=== PATIENT | male | born 1985 | race Two or more races ===

== ENCOUNTER 2023-05-08 19:26 | Emergency (ER) | payer MEDICAID, OTHER ==
[~2023-05-08] VITALS: Ht 175.3 cm; Wt 85.0 kg
[~2023-05-08 19:26] MED LIST: AMOX875T3 PO; PRED20TA2 PO; PROM1SOL4 PO
[2023-05-08] MEDS ORDERED: ALBUTEROL SULF 2.5 MG/0.5ML(0.5%) NEB SOLN NEB ONE (20:00)
[2023-05-08] MEDS ORDERED: IPRATROPIUM BROM 0.5 MG/2.5ML INH SOL NEB ONE (20:00)
[2023-05-08 21:15] VITALS: BP 128/85; PULSE 91; RESP 16; TEMP 98.7; O2SAT 94
[2023-05-08] MEDS ORDERED: ALBUAER3 IN (21:17)
[2023-05-08] MEDS ORDERED: DOXY-448 PO (21:17)
[2023-05-08] MEDS ORDERED: PRED20TA2 PO (21:17)
[2023-05-08] MEDS: SODIUM CHLORIDE 0.9% 1,000 ML IV ONE (21:19)
[2023-05-08 21:22] LABS: COVID19 ANTIGEN SOFIA FIA NEGATIVE (NEGATIVE)
[2023-05-08 21:23] LABS: Rapid Influenza A Negative (Negative); Rapid Influenza B Negative (Negative)
[2023-05-08] MEDS: methylPREDNISolone SOD SUCC 125 MG/2 ML VL IV ONE (21:25)
[2023-05-08] MEDS: cefTRIAXone 1GM/50ML D5W 50 ML IV ONE (21:25)
[2023-05-08 21:28] LABS: Basophils # (auto) 0.1 10 ^3/uL (0-0.2); Basophils % (auto) 0.8 % (0.0-2.0); Eosinophils # (auto) 0.6 10 ^3/uL (0-0.8); Eosinophils % (auto) 4.6 % (0.0-7.0); Hematocrit 49.9 % (41.0-53.0); Hemoglobin 16.7 g/dL (13.5-17.5); Lymphocytes # (auto) 4.2 10 ^3/uL (0.4-5.4); Lymphocytes % (auto) 30.5 % (10.0-50.0); Mean Corpuscular Hemoglobin 29.9 pg (28.0-32.0); Mean Corpuscular Hgb Conc. 33.5 g/dL (32.0-36.0); Mean Corpuscular Volume 89.3 fL (80.0-100.0); Monocytes # (auto) 1.6 10 ^3/uL (0-1.3); Monocytes % (auto) 11.2 % (0.0-12.0); Neutrophils # (auto) 7.4 10 ^3/uL (1.6-8.6); Neutrophils % (auto) 52.9 % (37.0-80.0); Nucleated Red Blood Cells % 0.1 %; Red Blood Cells 5.58 10^6/uL (4.5-5.90); White Blood Cell 13.9 10^3/uL (4.4-10.8)
[2023-05-08] MEDS: DOXYCYCLINE 100MG/250ML 250 ML IV ONE (21:37)
[2023-05-08 21:39] LABS: Chloride 107 mmol/L (98-107); Potassium 3.6 mmol/L (3.5-5.1); Sodium 138 mmol/L (136-145)
[2023-05-08 21:40] LABS: Anion Gap 3 (5-15); Calcium 8.8 mg/dL (8.7-10.4); Carbon Dioxide 28 mmol/L (20-30)
[2023-05-08 21:45] LABS: BUN/Creatinine Ratio 11.3 (10.0-20.0); Blood Urea Nitrogen 9 mg/dL (9-23); Glucose 95 mg/dL (74-106)
[2023-05-08 23:19] VITALS: O2SAT 97
[2023-05-14] MEDS ORDERED: LEVO750T40 PO (15:35)
== END 2023-05-08 23:39 | disposition home or self-care (01) ==
LOC: ER 19:26
DX: J18.1 Lobar pneumonia, unspecified organism (principal); Z20.822 Contact with and (suspected) exposure to COVID-19
CPT/HCPCS: 36415; 71045; 80048; 85025; 87426; 87804; 96365; 96366; 96375; 99284; J0696; J2930; J3490; J7030